=== PATIENT | female | born 1940 | race African-American/Black ===

== ENCOUNTER 2020-12-16 13:35 | Emergency (ER) | payer OTHER ==
[2020-12-16 13:43] VITALS: BP 123/76; PULSE 86; TEMP 98.1; BMI 20.3
== END 2020-12-16 15:15 | disposition home or self-care (01) ==
LOC: JERFT 13:35
DX: S62.102A Fracture of unspecified carpal bone, left wrist, initial encounter for closed fracture (principal)
CPT/HCPCS: 73110-TC-LT-FY; 99284-25